=== PATIENT | male | born 1990 | race African-American/Black ===

== ENCOUNTER 2017-06-02 18:13 | Emergency (ER) | payer OTHER ==
[2017-06-02] MEDS ORDERED: Amoxicillin/Clavulanate K 875-125 MG Tab PO ONE (18:41)
--- NOTE | 2017-06-02 18:46 | EDM.PDOC ---
ED HPI GENERAL MEDICAL PROBLEM - General Chief Complaint: ENT Problem Stated Complaint: CAN'T SWALLOW Time Seen by Provider: 06/02/17 18:13 Source of Information: Reports: Patient, Family History Limitations: Reports: No Limitations - History of Present Illness INITIAL COMMENTS - FREE TEXT/NARRATIVE: 26 y.o.b.m came with family to the ed due to a sore throat in the past few days with difficulty/painfull swallowing, no other acute medical issues. BP 120.59 HR 100 Temp 98.1 Pulse 0x 96% on RA Onset Date: 05/31/17 Onset Time: 10:00 Duration: Day(s):, Getting Worse Location: Reports: Face Quality: Reports: Ache, Burning Severity: Moderate Improves with: Reports: Cold Therapy, Medication Context: Reports: Sick Contact Associated Symptoms: Reports: No Other Symptoms Throat Pain Score (Numeric/FACES): 5 - Related Data Allergies Allergy/AdvReac Type Severity Reaction Status Date / Time No Known Allergies Allergy Verified 06/02/17 18:25 Home Meds: Home Meds Amoxicillin/Potassium Clav [Augmentin 875-125 Tablet] 1 each PO BID #20 tablet 06/02/17 [Rx] ED ROS ENT - Review of Systems Review Of Systems: See Below Constitutional: Reports: No Symptoms, Fever HEENT: Reports: Throat Pain Respiratory: Reports: No Symptoms Cardiovascular: Reports: No Symptoms Endocrine: Reports: No Symptoms GI/Abdominal: Reports: No Symptoms : Reports: No Symptoms Musculoskeletal: Reports: No Symptoms Skin: Reports: No Symptoms Neurological: Reports: No Symptoms Psychiatric: Reports: No Symptoms Hematologic/Lymphatic: Reports: No Symptoms Immunologic: Reports: No Symptoms ED EXAM, ENT - Physical Exam Exam: See Below Exam Limited By: No Limitations General Appearance: Alert, WD/WN, Mild Distress Eye Exam: Bilateral Eye: Normal Inspection Ears: Normal External Exam, Normal Canal, Hearing Grossly Normal Nose: Normal Inspection, Normal Mucousa Mouth/Throat: Dry Mucous Membrane, Tonsillar Erythema, Tonsillar Swelling Head: Atraumatic, Normocephalic Neck: Normal Inspection, Supple, Non-Tender, Full Range of Motion Respiratory/Chest: No Respiratory Distress, Lungs Clear, Normal Breath Sounds, No Accessory Muscle Use, Chest Non-Tender Cardiovascular: Normal Peripheral Pulses, Regular Rate, Rhythm, No Edema, No Gallop GI/Abdominal: Normal Bowel Sounds, Soft, Non-Tender, No Organomegaly, No Distention, No Abnormal Bruit, No Mass (Male) Exam: Deferred Rectal (Males) Exam: Deferred Back: Normal Inspection, Full Range of Motion Extremities: Normal Inspection, Normal Range of Motion Neurological: Alert, Oriented, CN II-XII Intact, Normal Cognition, Normal Gait, No Motor/Sensory Deficits Psychiatric: Normal Affect, Normal Mood Skin: Warm, Dry, Intact, Normal Color, No Rash Lymphatic: No Adenopathy Course - Vital Signs Text/Narrative:: 26 y.o.b.m came with family to the ed due to a sore throat in the past few days with difficulty/painfull swallowing, no other acute medical issues. BP 120.59 HR 100 Temp 98.1 Pulse 0x 96% on RA PE: 26 y.o.b. male with a sore throat and paiful swallowing Labs: Strep pharyngitis Impression: Strep pharyngitis Tx: Augmentin Reexam: Improved Plan: D/C with instructions Last Recorded V/S: Last Vital Signs Temp 36.7 C 06/02/17 18:15 Pulse 100 06/02/17 18:15 Resp 18 06/02/17 18:15 BP 120/59 L 06/02/17 18:15 Pulse Ox 96 06/02/17 18:15 - Orders/Labs/Meds Orders: Active Orders 24 hr Category Date Time Status STREP SCRN A RAPID W CULT CONF [RM] Stat Lab 06/02/17 18:20 Ordered Meds: Medications Discontinued Medications Generic Name Dose Route Start Last Admin Trade Name Basimq PRN Reason Stop Dose Admin Amoxicillin/Clavulanate Potassium 1 tab 06/02/17 18:41 06/02/17 18:52 Augmentin 875 Mg/125 Mg PO 06/02/17 18:42 1 tab ONETIME ONE Administration Departure - Departure Time of Disposition: 18:45 Disposition: Home, Self-Care 01 Condition: Good Clinical Impression: Strep pharyngitis - Discharge Information Prescriptions: Amoxicillin/Potassium Clav [Augmentin 875-125 Tablet] 1 each PO BID #20 tablet Instructions: Amoxicillin capsules or tablets, Strep Throat Referrals: PCP,None [Primary Care Provider] - Forms: ED Department Discharge Additional Instructions: Please take motrin/tylenol for pain, Augmentin as recommended, Saltwater gurgling. Please f/u. come back to the ed if your symptoms get worse acutely - My Orders Last 24 Hours: My Active Orders 06/02/17 18:20 STREP SCRN A RAPID W CULT CONF [RM] Stat - Assessment/Plan Last 24 Hours: My Active Orders 06/02/17 18:20 STREP SCRN A RAPID W CULT CONF [RM] Stat
== END 2017-06-02 19:00 | disposition home or self-care (01) ==
LOC: FB.ED 18:13
DX: J02.0 Streptococcal pharyngitis (principal)
CPT/HCPCS: 87880-QW; 99282; A9270-GY